=== PATIENT | male | born 1980 | race Caucasian/White ===

== ENCOUNTER 2019-11-21 15:36 | Emergency (ER) | payer BC ==
[2019-11-21] MEDS ORDERED: Diphtheria,Pertussis(Acell),Tetanus Vaccine 0.5 ML Syringe IM ONE (16:10)
--- NOTE | 2019-11-21 16:14 | EDM.PDOC ---
ED HPI GENERAL MEDICAL PROBLEM - General Chief Complaint: Lower Extremity Injury/Pain Stated Complaint: RIGHT LEG LACERATION Time Seen by Provider: 11/21/19 15:57 Source of Information: Reports: Patient History Limitations: Reports: No Limitations - History of Present Illness INITIAL COMMENTS - FREE TEXT/NARRATIVE: Patient reports right soares injury. 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 Since that time he has had pain and has an abrasion there. Weightbearing and ambulation not affected. Tetanus status is unknown at least greater than 5 years. Otherwise healthy without chronic medical problems right lowerleg Pain Score (Numeric/FACES): 2 - Related Data Allergies Allergy/AdvReac Type Severity Reaction Status Date / Time No Known Allergies Allergy Verified 11/21/19 15:45 Home Meds: Home Meds . [No Known Home Meds] 11/21/19 [History] Past Medical History HEENT History: Reports: None Cardiovascular History: Reports: None Respiratory History: Reports: None Gastrointestinal History: Reports: None Genitourinary History: Reports: None Musculoskeletal History: Reports: Other (See Below) Neurological History: Reports: None Psychiatric History: Reports: None Endocrine/Metabolic History: Reports: None Hematologic History: Reports: None Immunologic History: Reports: None Oncologic (Cancer) History: Reports: None Dermatologic History: Reports: None - Infectious Disease History Infectious Disease History: Reports: Chicken Pox - Past Surgical History Head Surgeries/Procedures: Reports: None HEENT Surgical History: Reports: Tonsillectomy Cardiovascular Surgical History: Reports: None Respiratory Surgical History: Reports: None GI Surgical History: Reports: None Male Surgical History: Reports: None Endocrine Surgical History: Reports: None Neurological Surgical History: Reports: None Musculoskeletal Surgical History: Reports: Other (See Below) Other Musculoskeletal Surgeries/Procedures:: right quad surgery Oncologic Surgical History: Reports: None Dermatological Surgical History: Reports: None Social & Family History - Family History Family Medical History: Noncontributory - Tobacco Use Smoking Status *Q: Current Every Day Smoker Years of Tobacco use: 18 Packs/Tins Daily: 1 - Caffeine Use Caffeine Use: Reports: None - Recreational Drug Use Recreational Drug Use: No Review of Systems - Review of Systems Review Of Systems: Comprehensive ROS is negative, except as noted in HPI. ED EXAM, GENERAL - Physical Exam Exam: See Below Exam Limited By: No Limitations General Appearance: Alert, No Apparent Distress Ears: Normal External Exam Nose: Normal Inspection Throat/Mouth: Normal Inspection Head: Atraumatic, Normocephalic Neck: Normal Inspection Respiratory/Chest: No Respiratory Distress, Lungs Clear, Normal Breath Sounds Cardiovascular: Normal Peripheral Pulses, Regular Rate, Rhythm Extremities: Other (Right soares, 2 cm deep abrasion, tenderness. Full range of motion of the right knee ankle and toes without hesitation or limitation. No decrease in strength. Pedal and posttibial pulses are strong. CMS is intact distally.) Neurological: Alert, Oriented, Normal Cognition Psychiatric: Normal Affect, Normal Mood Skin Exam: Warm, Dry, Intact, Normal Color, No Rash Lymphatic: No Adenopathy Course - Vital Signs Last Recorded V/S: Last Vital Signs Temp 35.9 C L 11/21/19 15:45 Pulse 82 11/21/19 15:45 Resp 16 11/21/19 15:45 BP 130/82 11/21/19 15:45 Pulse Ox 98 11/21/19 15:45 - Orders/Labs/Meds Orders: Active Orders 24 hr Category Date Time Status Vaccines to be Administered [RC] PER UNIT ROUTINE Care 11/21/19 16:11 Ordered Tibia Fibula Rt [CR] Stat Exams 11/21/19 16:10 Ordered Bacitracin [Bacitracin Oint 1 GM] Med 11/21/19 17:11 Once 1 dose TOP ONETIME ONE Ketorolac [Toradol] Med 11/21/19 17:11 Once 60 mg IM ONETIME ONE Medication Orders Bacitracin (Bacitracin Oint 1 Gm) 1 dose TOP ONETIME ONE Stop: 11/21/19 17:12 Meds: Medications Generic Name Dose Route Start Last Admin Trade Name Freq PRN Reason Stop Dose Admin Bacitracin 1 dose 11/21/19 17:11 Bacitracin Oint 1 Gm TOP 11/21/19 17:12 ONETIME ONE Discontinued Medications Generic Name Dose Route Start Last Admin Trade Name Freq PRN Reason Stop Dose Admin Diphtheria/Tetanus/Acell Pertussis 0.5 ml 11/21/19 16:10 11/21/19 16:31 Adacel IM 11/21/19 16:11 0.5 ml .ONCE ONE Administration Departure - Departure Time of Disposition: 17:12 Disposition: Home, Self-Care 01 Condition: Good Clinical Impression: Abrasion - Discharge Information Referrals: Jonas Hoskins MD [Primary Care Provider] - Forms: ED Department Discharge Additional Instructions: The following information is given to patients seen in the emergency department who are being discharged to home. This information is to outline your options for follow-up care. We provide all patients seen in our emergency department with a follow-up referral. The need for follow-up, as well as the timing and circumstances, are variable depending upon the specifics of your emergency department visit. If you don't have a primary care physician on staff, we will provide you with a referral. We always advise you to contact your personal physician following an emergency department visit to inform them of the circumstance of the visit and for follow-up with them and/or the need for any referrals to a consulting sp ecialist. The emergency department will also refer you to a specialist when appropriate. This referral assures that you have the opportunity for follow-up care with a specialist. All of these measure are taken in an effort to provide you with optimal care, which includes your follow-up. Under all circumstances we always encourage you to contact your private physician who remains a resource for coordinating your care. When calling for follow-up care, please make the office aware that this follow-up is from your recent emergency room visit. If for any reason you are refused follow-up, please contact the [facility] Emergency Department at and asked to speak to the emergency department charge nurse. 1. Keep abrasion clean. 2. Antibiotic ointment daily after showering. Covered while working 3. Watch for signs of infection: Redness, swelling, purulent drainage report promptly. Sepsis Event Note (ED) - Evaluation Sepsis Screening Result: No Definite Risk - Focused Exam Vital Signs: Vital Signs Temp Pulse Resp BP Pulse Ox 11/21/19 15:45 35.9 C L 82 16 130/82 98 - My Orders Last 24 Hours: My Active Orders 11/21/19 16:10 Tibia Fibula Rt [CR] Stat 11/21/19 16:11 Vaccines to be Administered [RC] PER UNIT ROUTINE 11/21/19 17:11 Bacitracin [Bacitracin Oint 1 GM] 1 dose TOP ONETIME ONE Ketorolac [Toradol] 60 mg IM ONETIME ONE - Assessment/Plan Last 24 Hours: My Active Orders 11/21/19 16:10 Tibia Fibula Rt [CR] Stat 11/21/19 16:11 Vaccines to be Administered [RC] PER UNIT ROUTINE 11/21/19 17:11 Bacitracin [Bacitracin Oint 1 GM] 1 dose TOP ONETIME ONE Ketorolac [Toradol] 60 mg IM ONETIME ONE
[2019-11-21] MEDS ORDERED: Bacitracin Oint 1 GM U/D Packet TOP ONE (17:11)
[2019-11-21] MEDS ORDERED: Ketorolac 60 MG/2 ML SDV IM ONE (17:11)
--- NOTE | 2019-11-21 17:17 | CR ---
Right tibia and fibula: AP and lateral views of the right tibia and fibula were obtained. Comparison: No previous study. Spur is noted off the posterior calcaneus at the attachment of the Achilles tendon. Ankle mortise is symmetric. No fracture or other bony abnormality is appreciated. Impression: 1. Calcaneal spur. 2. Nothing acute is appreciated on 2 view right tibia and fibula exam. Diagnostic code #2 This report was dictated in MDT
== END 2019-11-21 17:52 | disposition home or self-care (01) ==
LOC: MW.ED 15:36
DX: S80.811A Abrasion, right lower leg, initial encounter (principal); F17.210 Nicotine dependence, cigarettes, uncomplicated; Z23 Encounter for immunization; W22.8XXA Striking against or struck by other objects, initial encounter; Y93.01 Activity, walking, marching and hiking
CPT/HCPCS: 73590; 90471; 90715; 96372; 99283; J1885; 99282

== ENCOUNTER 2020-02-19 17:25 | Day surgery (SDC) | payer BC ==
[2020-02-19] MEDS ORDERED: Sodium Chloride 0.9% 2.5 ML Syringe FLUSH PRN (17:27)
[2020-02-19] MEDS ORDERED: Sodium Chloride 0.9% 10 ML Syringe FLUSH PRN (17:27)
[2020-02-19] MEDS ORDERED: cefOXitin 2 GM in Premix Bag 1 BAG IV ONE (17:38)
[2020-02-19] MEDS ORDERED: Lactated Ringers 1,000 ML IV SCH (17:45)
--- NOTE | 2020-02-19 18:05 | PCM.SN.2 ---
- Free Text/Narrative Note: h/p [id number] dictated
--- NOTE | 2020-02-19 18:33 | PCM.PREANE ---
Preanesthetic Assessment - Anesthesia/Transfusion/Family Hx Family History of Anesthesia Reaction: No - Review of Systems General: No Symptoms Pulmonary: No Symptoms Cardiovascular: No Symptoms Gastrointestinal: No Symptoms Neurological: No Symptoms Other: Reports: None - Physical Assessment NPO Status Date: 02/19/20 NPO Status Time: 13:00 (pizza) Vital Signs: Last Vital Signs Temp 37.2 C 02/19/20 17:30 Pulse 63 02/19/20 17:30 Resp 16 02/19/20 17:30 BP 117/80 02/19/20 17:30 Pulse Ox 97 02/19/20 17:30 Height: 1.83 m Weight: 95.254 kg ASA Class: 2 Mental Status: Alert & Oriented x3 Airway Class: Mallampati = 3 Dentition: Reports: Normal Dentition ROM/Head Extension: Full Lungs: Clear to Auscultation Cardiovascular: Regular Rate - Allergies Allergies/Adverse Reactions: Allergies Allergy/AdvReac Type Severity Reaction Status Date / Time No Known Allergies Allergy Verified 02/19/20 18:08 - Anesthesia Plan Free Text/Narrative:: GA ETT RSI - Acknowledgements Anesthesia Type Planned: General Anesthesia Pt an Appropriate Candidate for the Planned Anesthesia: Yes Alternatives and Risks of Anesthesia Discussed w Pt/Guardian: Yes Pt/Guardian Understands and Agrees with Anesthesia Plan: Yes Additional Comments: Dr. Langford notified of NPO status and states we do not need to wait 8 hours. Covid test pending so will plan for approximately 1900. Dr. Olmos aware and agreeable. PreAnesthesia Questionnaire HEENT History: Reports: None Cardiovascular History: Reports: None Respiratory History: Reports: None Gastrointestinal History: Reports: None Genitourinary History: Reports: None Musculoskeletal History: Reports: Other (See Below) Neurological History: Reports: None Psychiatric History: Reports: None Endocrine/Metabolic History: Reports: None Hematologic History: Reports: None Immunologic History: Reports: None Oncologic (Cancer) History: Reports: None Dermatologic History: Reports: None - Infectious Disease History Infectious Disease History: Reports: None - Past Surgical History Head Surgeries/Procedures: Reports: None HEENT Surgical History: Reports: Tonsillectomy Cardiovascular Surgical History: Reports: None Respiratory Surgical History: Reports: None GI Surgical History: Reports: None Male Surgical History: Reports: None Endocrine Surgical History: Reports: None Neurological Surgical History: Reports: None Other Musculoskeletal Surgeries/Procedures:: right quad surgery, ankle Oncologic Surgical History: Reports: None Dermatological Surgical History: Reports: None - SUBSTANCE USE Tobacco Use Status *Q: Never Tobacco User Recreational Drug Use History: No - HOME MEDS Home Medications: Home Meds . [No Known Home Meds] 11/21/19 [History] - CURRENT (IN HOUSE) MEDS Current Meds: Current Medications Lactated Ringer's (Ringers, Lactated) 1,000 mls @ 150 mls/hr IV ASDIRECTED [facility] Last Admin: 02/19/20 17:55 Dose: 150 mls/hr Documented by: Sodium Chloride (Saline Flush) 10 ml FLUSH ASDIRECTED PRN PRN Reason: Keep Vein Open Sodium Chloride (Saline Flush) 2.5 ml FLUSH ASDIRECTED PRN PRN Reason: Keep Vein Open Discontinued Medications Cefoxitin Sodium 2 gm/ Premix 50 mls @ 100 mls/hr IV ONETIME ONE Stop: 02/19/20 18:07 Last Admin: 02/19/20 17:54 Dose: 100 mls/hr Documented by:
[2020-02-19] MEDS ORDERED: Midazolam 1 MG/ML 2 ML SDV ONE ×3 (18:37→21:22)
[2020-02-19] MEDS ORDERED: Propofol 200 MG/20 ML SDV ONE (18:37)
[2020-02-19] MEDS ORDERED: fentaNYL 250 MCG/5 ML SDV ONE (18:37)
[2020-02-19] MEDS ORDERED: Rocuronium Bromide 50 MG/5 ML Syringe ONE (18:38)
[2020-02-19] MEDS ORDERED: Succinylcholine/Sod PF 100 MG/5 ML SYRINGE IV ONE (18:38)
[2020-02-19] MEDS ORDERED: Glycopyrrolate 0.2 MG/ML SDV ONE (18:39)
[2020-02-19] MEDS ORDERED: Dexamethasone 4 MG/ML 5 ML MDV ONE (18:40)
[2020-02-19] MEDS ORDERED: Ondansetron 4 MG/2 ML SDV ONE (18:40)
[2020-02-19] MEDS ORDERED: Bupivacaine 25%/EPINEPHrine/PF 30 ML ONE (18:42)
[2020-02-19 19:10] LABS: BLOOD UREA NITROGEN,BUN 10 mg/dL (7.0-18.0); CARBON DIOXIDE,CO2 24.9 mmol/L (21.0-32.0); CHLORIDE,CL 101 mmol/L (98-107); GLUCOSE RANDOM 97 mg/dL (74-106); POTASSIUM,K 3.6 mmol/L (3.5-5.1); SODIUM,NA 140 mmol/L (136-148)
[2020-02-19] MEDS ORDERED: HYDROmorphone 2 MG/ML Syringe ONE (21:06)
[2020-02-19] MEDS ORDERED: Sodium Chloride 0.9% 20 ML ONE (21:07)
[2020-02-19] MEDS ORDERED: Acetaminophen/oxyCODONE 325-5 MG Tab PO PRN (21:34)
[2020-02-19] MEDS ORDERED: Morphine 4 MG/ML Syringe IVPUSH PRN (21:34)
[2020-02-19] MEDS ORDERED: Ondansetron 4 MG/2 ML SDV IVPUSH PRN (21:37)
--- NOTE | 2020-02-19 21:41 | PCM.OPNOTE ---
- General Post-Op/Procedure Note Date of Surgery/Procedure: 02/19/20 Operative Procedure(s): lap appy Findings: appendicitis w severe adherence to surrounding organs, and distended proximal 1/2, acute appendicitis suppurativa; gross perf not observed; surgicell a piece inserted for hemostasis; [id number] Pre Op Diagnosis: acute appendicitis Post-Op Diagnosis: Same Anesthesia Technique: General ET Tube Primary Surgeon: Chris Olmos Pathology: sent Complications: None Condition: Good Free Text/Narrative:: Intake & Output 02/19/20 02/19/20 02/19/20 06:59 14:59 22:59 Output Total 300 Balance -300
[2020-02-19] MEDS: fentaNYL 100 MCG/2 ML SDV IVPUSH PRN ×2 (22:23→22:31)
--- NOTE | 2020-02-19 22:40 | PCM.POSTAN ---
POST ANESTHESIA ASSESSMENT - MENTAL STATUS Mental Status: Alert, Oriented - VITAL SIGNS Vital Signs: Last Vital Signs Temp 37.4 C 02/19/20 21:26 Pulse 76 02/19/20 22:37 Resp 12 02/19/20 22:37 BP 122/80 02/19/20 22:37 Pulse Ox 92 L 02/19/20 22:37 - RESPIRATORY Respiratory Status: Supplemental Oxygen (3L/NC) - CARDIOVASCULAR CV Status: Pulse Rate WNL - GASTROINTESTINAL GI Status: No Symptoms - PAIN Pain Score: 3 - POST OP HYDRATION Hydration Status: Adequate & Stable
[2020-02-19] MEDS: Lactated Ringers 1,000 ML IV SCH (23:06)
--- NOTE | 2020-02-19 23:06 | OR ---
SURGEON: Chris Olmos MD DATE OF PROCEDURE: 02/19/2020 PREOPERATIVE DIAGNOSIS: Acute appendicitis. POSTOPERATIVE DIAGNOSIS: Acute appendicitis. PROCEDURE PERFORMED: Laparoscopic appendectomy. PRIMARY SURGEON: Chris Olmos MD COMPLICATIONS: None apparent. FINDINGS: Appendicitis with severe adherence to surrounding organs and distended proximal half and acute appendicitis suppurativa. Gross perforation not observed. Surgicel, a piece, inserted for hemostasis. DESCRIPTION OF PROCEDURE: The patient was taken to the operating room and placed in the supine position. Following induction of general endotracheal anesthesia, the patient's abdomen was prepped and draped in the sterile fashion. A time-out has been called. The patient was identified. The procedure was identified. The antibiotics were identified. The procedure then proceeded. The abdomen was prepped and draped in a standard fashion. After assessment of appropriate landmarks, a 12 millimeter trocar was inserted supraumbilically using Optiview and pneumoperitoneum was then achieved. This was followed with placement of 5 millimeter port in the right upper quadrant and another 5 millimeter port infraumbilically. The camera was inserted supraumbilical site and two laparoscopic [place] retractors were then inserted through the other two sites. Following the cecum, the appendix was located. The appendix was then lifted up, and using a GI stapler the appendix was amputated at the base. And using the GI stapler, the mesoappendix was then amputated. The appendix was retrieved by an endoscopic bag and sent for pathologist. This was then followed by re-insertion of the camera to examine the staple line, and hemostasis. The trocars were then removed. After the appendix removed followed with irrigation, a piece of Surgicel was inserted for hemostasis and skin closing was with skin staple and an appropriate dressing. The umbilical site was closed with 2-0 Vicryl deep stitch and 4-0 Vicryl and Dermabond; the other 2 5 mm port sites were closed with 4-0 Vicryl and Dermabond. The patient was then awakened, extubated, and transferred to the recovery room in hemodynamically stable condition. Prior to closing, sponge count and instrument count was correct. Dr. Olmos was present throughout the whole procedure. As always, thank you for the kind referral. Intraoperative findings dictated above. CHRISTINE / GENE /[id number]
[2020-02-20] MEDS: Lactated Ringers 1,000 ML IV SCH (06:39)
--- NOTE | 2020-02-20 07:40 | CONS ---
DATE OF CONSULTATION: 02/19/2020 DATE OF : 1980 PRIMARY CARE PHYSICIAN: Jovanni Martines MD Emergency room H&P and consultation HISTORY OF PRESENT ILLNESS: This is a 39-year-old gentleman complaining of a 24-hour history of acute onset of right lower quadrant pain. Sent to the CAT scan by primary care doctor, note for acute appendicitis. Surgery was then consulted. The patient remarked that the pain was 8/10 on pain scale last night, now is about 6. Had full lunch and denied prior episode. PAST MEDICAL HISTORY: Significant for no diabetes, [place], CVA, hypertension. SOCIAL HISTORY: The patient uses electronic cigarettes, vaping. Denied alcohol abuse. PAST SURGICAL HISTORY: No abdominal surgery. PHYSICAL EXAMINATION: GENERAL: A very pleasant gentleman in mild acute distress. HEENT: Normocephalic, atraumatic. Sclerae anicteric. LUNGS: Clear to auscultation. HEART: Regular rate and rhythm. ABDOMEN: Exquisite localized tenderness at the McBurney point. Rovsing sign is negative. ASSESSMENT/PLAN: CAT scan is not available for me at the time being and reportedly positive CAT scan. The patient was given risks and benefits regarding surgical management, and we will take the patient to timely surgery, appendectomy, laparoscopic versus open. Risks and benefits discussed, and the patient concurred to proceed with surgery. CHRISTINE / GENE /[id number]
--- NOTE | 2020-02-20 08:14 | PCM48HPAN ---
Post Anesthesia Note - EVALUATION WITHIN 48HRS OF ANESTHETIC Vital Signs in Normal Range: Yes Patient Participated in Evaluation: Yes Respiratory Function Stable: Yes Airway Patent: Yes Cardiovascular Function Stable: Yes Hydration Status Stable: Yes Pain Control Satisfactory: Yes Nausea and Vomiting Control Satisfactory: Yes Mental Status Recovered: Yes Vital Signs: Last Vital Signs Temp 35.7 C L 02/19/20 23:00 Pulse 66 02/20/20 03:00 Resp 16 02/20/20 03:00 BP 119/60 02/20/20 03:00 Pulse Ox 98 02/20/20 03:00 - COMMENTS/OBSERVATIONS Free Text/Narrative:: Only complaint is a sore throat today and some abdominal pain but states doing well and hoping to go home soon.
== END 2020-02-20 12:30 | disposition home or self-care (01) ==
LOC: MW.ED 17:25 → MW.SDS 18:30 → MW.MS 21:50 → UNDOADMOB 21:50 → MW.MS 22:45 → MW.SDS 02-20 12:30
PROVIDERS: ATTEND Surgery
DX: K35.80 Unspecified acute appendicitis (principal); F17.210 Nicotine dependence, cigarettes, uncomplicated; Z79.899 Other long term (current) drug therapy; Z01.812 Encounter for preprocedural laboratory examination; Z20.828 Contact with and (suspected) exposure to other viral communicable diseases
CPT/HCPCS: 36415; 44970; 80048; 85025; 87635; 88304; A9270; C1776; J0330; J0694; J1100; J1170; J2001; J2250; J2270; J2704; J3010; J3490; J7120; 00840; J2405; U0002